=== PATIENT | female | born 1995 | race Caucasian/White ===

== ENCOUNTER 2020-10-06 15:24 | Emergency (ER) | payer MEDICAID ==
--- NOTE | 2020-10-06 15:28 | ERPHSYRPT ---
- History of Present Illness Time Seen by Provider: 10/06/20 15:27 Source: patient Exam Limitations: no limitations Physician History: This is a 25-year-old white female who presents with a 2 to 3-day history of left submandibular swollen lymph node. Patient had something similar to this in the past and it was treated with clindamycin and resolved. Patient denies fever. She denies cough. She denies shortness of breath. She denies chest pain. She does not have a sore throat. Patient is allergic to amoxicillin. She has taken clindamycin in the past without any issues or problems. Timing/Duration: abrupt onset, days (2 to 3 days ago) Severity: mild Prearrival Treatment: no prearrival treatment Modifying Factors: Improves With: nothing Associated Symptoms: swollen glands (Left submandibular), No ear pain (R), No ear pain (L), No cough, No fever, No chills, No jaw pain, No sore throat, No tooth pain Allergies/Adverse Reactions: amoxicillin Allergy (Verified 10/06/20 15:31) Travel Risk - International Travel Have you traveled outside of the country in past 3 weeks: No - Coronavirus Screening Are you exhibiting any of the following symptoms?: No Close contact with a COVID-19 positive Pt in past 14-21 Days: No - Review of Systems Constitutional: No Symptoms Eyes: No Symptoms Ears, Nose, & Throat: Other (Submandibular lymph node swollen) Respiratory: No Symptoms Cardiac: No Symptoms Abdominal/Gastrointestinal: No Symptoms Genitourinary Symptoms: No Symptoms Musculoskeletal: No Symptoms Skin: No Symptoms Neurological: No Symptoms Psychological: No Symptoms Endocrine: No Symptoms Hematologic/Lymphatic: Adenopathy (Swollen left submandibular node) Immunological/Allergic: No Symptoms All Other Systems: Reviewed and Negative - Past Medical History Pertinent Past Medical History: Yes - Past Surgical History Past Surgical History: Yes - Physical Exam General Appearance: no apparent distress, alert, anxiety Eye Exam: bilateral eye: normal inspection, PERRL, EOMI Ear Exam: bilateral ear: auricle normal, canal normal, TM normal Nasal Exam: normal inspection Throat Exam: normal, pharynx normal, moist mucus membranes (No visible gingivitis or abscesses), No dental tenderness Neck Exam: supple, full range of motion, trachea midline, lymphadenopathy (L) (Swollen submandibular), No non-tender, No JVD, No lymphadenopathy (R), No stiff neck Cardiovascular/Respiratory Exam: chest non-tender, no respiratory distress, No subcutaneous emphysema Abdominal Exam: non-tender Neurologic Exam: alert, oriented x 3, cooperative, 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 Use Tylenol and ibuprofen for pain control if not allergic. Take antibiotics as prescribed. Follow-up with your primary care physician for further management. Call today or tomorrow to make arrangements for follow-up appointment. Prescriptions: Clindamycin HCl 150 mg [Cleocin 150 mg Capsule] 2 cap PO QID #56 capsule
[2020-10-06 15:42] VITALS: BP 102/75; PULSE 98; O2SAT 97
== END 2020-10-06 15:55 | disposition home or self-care (01) ==
LOC: ED 15:24
DX: R59.1 Generalized enlarged lymph nodes (principal)
CPT/HCPCS: 99283